=== PATIENT | female | born 1935 | race Caucasian/White ===

== ENCOUNTER → 2024-01-26 08:42 | Outpatient (REF) | payer OTHER, SELFPAY | LOC: HWRAD 08:42 | PROVIDERS: ATTENDING PHYSICIAN Family Medicine | DX: R05.3 Chronic cough (principal) | CPT/HCPCS: 71046 ==

== ENCOUNTER → 2024-08-23 09:21 | Outpatient (REF) | payer OTHER, SELFPAY | LOC: HWRAD 09:21 | PROVIDERS: ATTENDING PHYSICIAN Internal Medicine Critical Care Medicine; FAMILY PHYSICIAN Family Medicine | DX: R05.3 Chronic cough (principal) | CPT/HCPCS: 71250 ==

== ENCOUNTER → 2024-11-15 11:48 | Outpatient (REF) | payer OTHER, SELFPAY | LOC: PAVMRI 11:48 | PROVIDERS: ATTENDING PHYSICIAN Family Medicine | DX: K86.2 Cyst of pancreas (principal) | CPT/HCPCS: 74183; A9575 ==

== ENCOUNTER 2025-03-23 17:28 | Emergency (ER) | payer OTHER, SELFPAY ==
[2025-03-23 17:37] VITALS: BP 121/79
[2025-03-23 18:07] LABS: % Basophils 0.5 % (0-2); % Eosinophils 0.9 % (0-6); % Immature Granulocytes 0.5 % (0-0.5); % Lymphocytes 19.2 % (20.5-51.1); % Monocytes 11.4 % (1.7-9.3); % Neutrophils 67.5 % (42.2-75.2); Absolute Eosinophils 0.1 10^3/uL (0-0.7); Absolute Lymphocytes 1.1 10^3/uL (1.2-3.4); Absolute Monocytes 0.7 10^3/uL (0.1-0.6); Absolute Neutrophils 3.9 10^3/uL (1.4-6.5); Hematocrit 37.7 % (37.0-47.0); Hemoglobin 12.3 g/dL (12.0-16.0); Mean Corp Hgb Conc. 32.6 g/dL (33.0-37.0); Mean Corpuscular Hgb 29.9 pg (27.0-31.0); Mean Corpuscular Volume 91.5 fL (81.0-99.0); Mean Platelet Volume 10.8 fL (7.4-10.4); Nucleated Red Blood Cells % 0 %; Platelet Count 111 10^3/uL (130-400); Red Blood Cell Count 4.12 10^6/uL (4.20-5.40); Red Cell Dist. Width 13.3 % (11.5-14.5); White Blood Cell Count 5.8 10^3/uL (4.8-10.8)
[2025-03-23 18:18] LABS: ALT (SGPT) 12 U/L (0-35); AST (SGOT) 22 U/L (14-36); Albumin 4.2 g/dl (3.5-5.0); Alkaline Phosphatase 60 U/L (38-126); Blood Urea Nitrogen 27 mg/dl (7-17); Calcium 9.8 mg/dl (8.4-10.2); Carbon Dioxide 34 mmol/L (22-30); Chloride 106 mmol/L (98-107); Glucose 91 mg/dl (70-99); Magnesium 2.2 mg/dl (1.6-2.3); Potassium 4.6 mmol/L (3.5-5.1); Sodium 145 mmol/L (135-145); Total Bilirubin 0.5 mg/dl (0.2-1.3); Total Protein 6.9 g/dl (6.3-8.2); eGFR > 60.00
[2025-03-23 18:26] LABS: NT-proBNP 469 pg/ml
[2025-03-23 18:47] VITALS: BP 154/72
[2025-03-23 19:00] VITALS: BP 160/70
--- NOTE | 2025-03-23 19:05 | ED.GENMED ---
History of Present Illness
General
Chief Complaint: Cardiac Symptoms
Source: patient and family (Daughter, granddaughter)
Exam Limitations: none
Time Seen by Provider: 03/23/25 19:04
Nursing documentation reviewed up to this point in time: agreed with
History of Present Illness
History of Present Illness:
The patient is a pleasant 89-year-old female with a past medical history of COPD, hyperlipidemia, and thyroid disease who presents with intermittent palpitations associated with lightheadedness for several weeks. Patient reports her symptoms have
become more frequent and lasting. Patient reports that her lightheadedness and palpitations were particularly intense today. Patient's EKG shows new onset A-fib. On cardiac rehabilitation program director, patient is frequently experiencing atrial fibrillation
alternating with a normal sinus rhythm. Patient denies chest pain. She denies current smoking.
Past History
Past History
ED Past Medical History: COPD, Hypercholesterolemia and Hypothyroidism
ED Past Surgical History: Other
Social History
Tobacco: Former smoker
Alcohol: None
Drug: None
Personal: Other
Living: alone
Employment: Retired
Family History
Family History: Other
Review of Systems
Review of Systems
Allergies reviewed?: Yes
All Other Systems: ROS reviewed and negative except as documented in HPI and ROS
Constitutional: Reports no symptoms
EENT: Reports no symptoms
Respiratory: Reports no symptoms
Cardiac: Reports palpitations and other (Lightheadedness)
ABD/GI: Reports no symptoms
: Reports no symptoms
Musculoskeletal: Reports no symptoms
Skin: Reports no symptoms
Neurological: Reports no symptoms
Endocrine: Reports no symptoms
Hematologic/Lymphatic: Reports no symptoms
Psychiatric: Reports no symptoms
Phy Exam
Physical Exam
Physical Exam:
Physical Exam
General: no apparent distress, not acutely ill. Smiling, conversational
Neck: supple.
Heart: Irregular, tachycardic
Lungs: no acute respiratory distress. clear bilaterally
Abdomen: Soft
Neuro: alert and oriented. no focal neurological deficits
Skin: no rash
Psychiatric: well kept. interactive and cooperative
Extremities: 1+ pitting edema in bilateral lower extremities. No calf tenderness
Course
Orders/Labs/Results
Orders:
Orders
03/23/25 17:30
Electrocardiogram (*1) Urgent
Reason for Study: Atrial Fibrillation
EKG- Treatment ONCE
03/23/25 17:50
CBC/With Diff [Complete Blood Count/With Diff] Urgent
CMP [Comprehensive Metabolic Panel] Urgent
Magnesium Urgent
Pro-BNP [NT-proBNP] Urgent
TSH Urgent
Comment: ADDON
03/23/25 19:22
0.9% Sodium Chloride 500 ml [Nss] 500 ml IV BOLUS
03/23/25 19:27
Add On- LAB Urgent
Tests Added?: TSH
03/23/25 20:07
Diltiazem Extended Release [Cardizem Cd] 120 mg PO NOW STA
03/23/25 20:09
Apixaban [Eliquis] 5 mg PO NOW STA
Abnormal Lab Results
03/23/25
17:50
RBC 4.12 L 10^6/uL
(4.20-5.40)
MCHC 32.6 L g/dL
(33.0-37.0)
Plt Count 111 L 10^3/uL
(130-400)
MPV 10.8 H fL
(7.4-10.4)
Absolute Lymphs (auto) 1.1 L 10^3/uL
(1.2-3.4)
Absolute Monos (auto) 0.7 H 10^3/uL
(0.1-0.6)
Lymphocytes % 19.2 L %
(20.5-51.1)
Monocytes % 11.4 H %
(1.7-9.3)
Carbon Dioxide 34 H mmol/L
(22-30)
BUN 27 H mg/dl
(7-17)
03/23/25 17:50
03/23/25 17:50
Vital Signs
Initial and Last Documented VS:
Initial Vital Signs
Temp Pulse Resp BP Pulse Ox
98.2 F 85 20 121/79 95
03/23/25 17:37 03/23/25 17:37 03/23/25 17:37 03/23/25 17:37 03/23/25 17:37
Last Documented Vital Signs
Temp Pulse Resp BP Pulse Ox
98.2 F 78 20 156/90 94
03/23/25 17:37 03/23/25 21:00 03/23/25 21:00 03/23/25 21:00 03/23/25 21:00
MDM/Problems Addressed
Differential Diagnosis Includes:
New onset a flutter, new onset A-fib, acute dehydration
MDM/Problems Addressed:
Patient presents with acute on subacute palpitations and lightheadedness
Chronic conditions affecting care:
COPD
Acute Exacerbation and/or Progression of Chronic Illness:
Patient is breathing comfortably with no acute exacerbation of COPD.
*Pulse Oximetry
Patient hypoxic: no
Comment: Pulse ox 95% on room air
*EKG
Interpreted by ED Provider?: Yes
Interpretation: abnormal
Comparison EKG: changes noted (Now in A-fib)
Rate: tachycardiac
Rhythm: a-fib
[place]: left axis deviation
Interval: normal interval
QRS Pattern: right bundle branch block
Ischemia: non-specific ST changes
*Delivery Nurse Interpretation
Rate: tachycardiac
Interpretation: abnormal
Rhythm: a-fib
*Critical Care Note
Total Time (30-74mins, 75-104mins- exclusive of procedures): Not Applicable
Data Reviewed
Review of Other/Old Records Reveals: Testing (Holter monitor showed no sign of A-fib in 2022)
Source: patient and family
Patient Management
Social determinants of health affecting care: Living situation and Strong social support
Discussion with other providers: Other (Case discussed with cardiology, Dr. Audi coley who recommended 120 mg of diltiazem extended release and 5 mg of Eliquis twice a day)
Escalation/DeEscalation of care consider admission/obs:
Patient has had no chest pain or shortness of breath. There is no sign of CHF. Therefore, patient feels comfortable going home with quick cardiology follow-up
ED Attending Note
-
Portions of this chart may have been created with voice recognition software.� Occasional wrong word or��sound alike� substitutions may have occurred due to the inherent limitations of voice recognition software.
Discharge Plan
Departure
Patient Disposition: Home (Routine Discharge)
Date of Disposition: 03/23/25
Time of Disposition: 21:08
Patient with high blood pressure during this ER visit?: Yes
Condition: Good
Covid-19: Not Applicable
Discharge Problem:
New onset a-fib
Instructions: How to take anticoagulants safely, Medicines for atrial fibrillation, Atrial fibrillation and atrial flutter - ED discharge instructions, Chest Pain CBC Follow Up, BLOOD PRESSURE
Prescriptions:
New
diltiazem HCl [DILT-XR] 120 mg capsule,ext.rel 24h degradable
120 mg PO DAILY Qty: 30 0RF
Eliquis 5 mg tablet
5 mg PO BID Qty: 60 0RF
Referrals:
Hans Bautista MD [Active, Cardiology]
Referral Note: If you do not hear from the cardiology office by Wednesday at noon, please give them a call to see them as soon as possible
Soraida Bagley MD [Family Provider, Family Practice]
Interventions
Interventions:
*Risk Screen - Suicide Last Done: 03/23/25 17:37
*General Assessment Last Done: 03/23/25 17:37
*Neglect/Abuse Screening Last Done: 03/23/25 17:37
*ED- Fall Risk Assessment Last Done: 03/23/25 17:37
*ED COVID-19 Vaccine History Last Done: 03/23/25 17:37
ED- Pulmonary Assessment Last Done: 03/23/25 18:43
ED- Cardiac Assessment Last Done: 03/23/25 18:43
Discharge Date and Time
Print Language: KENYAN
[2025-03-23 19:24] VITALS: BMI 27.2
[2025-03-23] MEDS: NSS 500 IV (19:24)
[2025-03-23 19:30] VITALS: BP 150/85
[2025-03-23 20:00] VITALS: BP 154/75
[2025-03-23] MEDS: CARDIZEM CD 120 MG PO (20:16)
[2025-03-23] MEDS: ELIQUIS 5 MG PO (20:16)
[2025-03-23 20:50] LABS: TSH 2.56 uIU/ml (0.47-4.68)
[2025-03-23 21:00] VITALS: BP 156/90
== END 2025-03-23 21:23 | disposition home or self-care (01) ==
LOC: EMR 17:28
PROVIDERS: Emergency Medicine; EMERGENCY PHYSICIAN Emergency Medicine; FAMILY PHYSICIAN Family Medicine
DX: I48.91 Unspecified atrial fibrillation (principal); R03.0 Elevated blood-pressure reading, without diagnosis of hypertension; J44.9 Chronic obstructive pulmonary disease, unspecified; E78.00 Pure hypercholesterolemia, unspecified; E07.9 Disorder of thyroid, unspecified; Z87.891 Personal history of nicotine dependence
CPT/HCPCS: 99284; 96360; 96361; 80053; 83735; 83880; 84443; 85025; 93005

== ENCOUNTER 2025-03-25 19:30 | Day surgery (SDC) | payer OTHER, SELFPAY ==
[2025-03-25] VITALS (20 sets, daily range): BP systolic 136–174; BP diastolic 55–103; BMI 26.1
[2025-03-25] MEDS: CALCIUM GLUCONATE 1000 MG IV (17:32)
--- NOTE | 2025-03-25 17:53 | ED.GENMED ---
History of Present Illness
General
Chief Complaint: Heart Rate Problem
Time Seen by Provider: 03/25/25 17:26
History of Present Illness
History of Present Illness:
Patient is a 89-year-old woman with history of COPD, hypothyroidism, newly diagnosed A-fib on diltiazem and Eliquis presenting to the emergency department lightheadedness dizziness. Per chart review patient was diagnosed with A-fib 3 days ago. She
has been compliant with her diltiazem. Did not take any additional doses. States that since yesterday she has been having feelings of lightheadedness dizziness. Has not passed out. No chest pain or shortness of breath. No nausea vomiting
diarrhea. No leg swelling or hemoptysis. No tick bites that she is aware of. No recent travel.
Past History
Past History
ED Past Medical History: COPD, Hypercholesterolemia and Hypothyroidism
ED Past Surgical History: Other
Social History
Tobacco: Former smoker
Alcohol: None
Drug: None
Personal: Other
Living: alone
Employment: Retired
Family History
Family History: Other
Phy Exam
Physical Exam
Physical Exam:
GENERAL: in no acute distress
HEENT: normocephalic, extraocular movements intact, moist oral mucosa
NECK: normal inspection
RESPIRATORY: no respiratory distress, clear to auscultation bilaterally
CARDIOVASCULAR: Irregularly irregular rhythm in the 90s
ABDOMEN/: soft, non-distended, non-tender to palpation, no rebound or guarding
EXTREMITIES: non-tender, no edema/swelling
NEUROLOGIC: awake and alert, moves all extremities
SKIN: warm
Course
Orders/Labs/Results
Orders:
Orders
03/25/25 16:52
Electrocardiogram (*1) Urgent
Reason for Study: Atrial Fibrillation
EKG- Treatment ONCE
03/25/25 17:29
Calcium Gluconate 1,000 mg IV NOW STA
03/25/25 17:33
Complete Blood Count/With Diff Urgent
Comprehensive Metabolic Panel Urgent
Lyme Progressive Urgent
Magnesium Urgent
Thyroid profile [TSH Reflex To Free T4] Urgent
Abnormal Lab Results
03/25/25
17:33
RBC 4.18 L 10^6/uL
(4.20-5.40)
MCHC 32.6 L g/dL
(33.0-37.0)
Plt Count 102 L 10^3/uL
(130-400)
MPV 11.4 H fL
(7.4-10.4)
Absolute Monos (auto) 0.7 H 10^3/uL
(0.1-0.6)
Immature Gran % 0.7 H %
(0-0.5)
Monocytes % 12.9 H %
(1.7-9.3)
Chloride 108 H mmol/L
(98-107)
BUN 25 H mg/dl
(7-17)
Glucose 116 H mg/dl
(70-99)
03/25/25 17:33
03/25/25 17:33
Vital Signs
Initial and Last Documented VS:
Initial Vital Signs
Temp Pulse Resp BP Pulse Ox
98.0 F 100 18 161/81 95
03/25/25 16:53 03/25/25 16:53 03/25/25 16:53 03/25/25 16:53 03/25/25 16:53
Last Documented Vital Signs
Temp Pulse Resp BP Pulse Ox
98.0 F 78 21 149/87 100
03/25/25 16:53 03/25/25 18:15 03/25/25 18:15 03/25/25 18:00 03/25/25 18:15
MDM/Problems Addressed
Differential Diagnosis Includes:
Patient is a 89-year-old woman with history of atrial fibrillation on diltiazem, hypothyroidism presenting to the emergency department with lightheadedness dizziness since last night. On arrival patient's heart rate was in the 90s in atrial
fibrillation however would have a sinus pause where she would become symptomatic with a blank stare. Her blood pressure have remained stable. Pads were placed immediately. Exam is otherwise reassuring. Differential consist of metabolic
derangement versus thyroid abnormality versus calcium channel maria elena overdose though less likely. Will check blood work and try calcium gluconate. I did immediately discuss with on-call cardiology Dr. Rush who is in agreement with plan. Plan
for eval tomorrow unless if anything changes. She recommends holding off on calcium at this time.
*Critical Care Note
Total Time (30-74mins, 75-104mins- exclusive of procedures): Not Applicable
Update Note
Update Note:
Nursing notified as patient had about 8-second pause. BP remained stable. Cardiology immediately notified. They will come in for evaluation. Labs generally unremarkable.
Dr Rush evaluated patient. Given the extent of the episodes and symptomatic, patient will be taken up for temporary pacer. Cardiology will admit to their service.
ED Attending Note
-
Portions of this chart may have been created with voice recognition software.� Occasional wrong word or��sound alike� substitutions may have occurred due to the inherent limitations of voice recognition software.
Discharge Plan
Departure
Patient Disposition: Admit
Date of Disposition: 03/25/25
Time of Disposition: 18:39
Presentation/result/management discussed w/ accepting /DO: vianca
Discharge Problem:
Symptomatic bradycardia
Prescriptions:
No Action
diltiazem HCl [DILT-XR] 120 mg capsule,ext.rel 24h degradable
120 mg PO DAILY Qty: 30 0RF
Eliquis 5 mg tablet
5 mg PO BID Qty: 60 0RF
tiotropium bromide [Spiriva with HandiHaler] 18 mcg Capsule, W/Inhalation Device
1 cap INHALATION DAILY
Referrals:
UNKNOWN - PT DOES,NOT KNOW [Family Provider]
Interventions
Interventions:
*Risk Screen - Suicide Last Done: 03/25/25 16:54
*Neglect/Abuse Screening Last Done: 03/25/25 17:25
*ED- Fall Risk Assessment Last Done: 03/25/25 17:25
ED- Cardiac Assessment Last Done: 03/25/25 17:25
ED- Pulmonary Assessment Last Done: 03/25/25 17:25
Discharge Date and Time
Print Language: GREENLANDIC
[2025-03-25 17:54] LABS: % Basophils 0.4 % (0-2); % Eosinophils 1.3 % (0-6); % Immature Granulocytes 0.7 % (0-0.5); % Lymphocytes 21.5 % (20.5-51.1); % Monocytes 12.9 % (1.7-9.3); % Neutrophils 63.2 % (42.2-75.2); Absolute Eosinophils 0.1 10^3/uL (0-0.7); Absolute Lymphocytes 1.2 10^3/uL (1.2-3.4); Absolute Monocytes 0.7 10^3/uL (0.1-0.6); Absolute Neutrophils 3.4 10^3/uL (1.4-6.5); Hematocrit 38.6 % (37.0-47.0); Hemoglobin 12.6 g/dL (12.0-16.0); Mean Corp Hgb Conc. 32.6 g/dL (33.0-37.0); Mean Corpuscular Hgb 30.1 pg (27.0-31.0); Mean Corpuscular Volume 92.3 fL (81.0-99.0); Mean Platelet Volume 11.4 fL (7.4-10.4); Nucleated Red Blood Cells % 0 %; Platelet Count 102 10^3/uL (130-400); Red Blood Cell Count 4.18 10^6/uL (4.20-5.40); Red Cell Dist. Width 13.5 % (11.5-14.5); White Blood Cell Count 5.4 10^3/uL (4.8-10.8)
[2025-03-25 18:11] LABS: ALT (SGPT) 25 U/L (0-35); AST (SGOT) 27 U/L (14-36); Albumin 4.2 g/dl (3.5-5.0); Alkaline Phosphatase 55 U/L (38-126); Blood Urea Nitrogen 25 mg/dl (7-17); Calcium 9.9 mg/dl (8.4-10.2); Carbon Dioxide 29 mmol/L (22-30); Chloride 108 mmol/L (98-107); Estimated Creatinine Clearance 62 ml/min; Glucose 116 mg/dl (70-99); Potassium 3.7 mmol/L (3.5-5.1); Sodium 142 mmol/L (135-145); Total Bilirubin 0.5 mg/dl (0.2-1.3); Total Protein 6.6 g/dl (6.3-8.2); eGFR > 60.00
[2025-03-25 18:43] LABS: TSH Reflex To Free T4 2.75 uIU/ml (0.47-4.68)
--- NOTE | 2025-03-25 18:46 | HPS.HSE ---
Family Physician
-
Family Physician: NOT KNOW UNKNOWN - PT DOES
Chief Complaint
-
Dizziness, presyncope
History of Present Illness
89-year-old female with hypothyroidism and hyperlipidemia who presents with dizziness and presyncope. She has been having presyncopal episodes for the past few months. She was referred to Dr. Bautista whom she saw in the office earlier this month. He
ordered an echocardiogram, stress test, and 2-week monitor as part of workup. She has not had these done yet. She presented to ER on 03/23 with intermittent palpitations and lightheadedness and ECG revealed new onset atrial fibrillation. A-fib
was paroxysmal so she was started on diltiazem 120 mg daily and Eliquis 5 mg twice daily. She returned to the ER today because her presyncopal episodes and dizziness were worsening. Here she was found to have paroxysmal atrial fibrillation with
intermittent sinus bradycardia (HRs as low as 30s�40s) and symptomatic conversion pauses up to 4.5 seconds.
Medical History
Past Medical History
Past Medical History: Reports Arrhythmia (Paroxysmal atrial fibrillation), Hypercholesterolemia and Hypothyroidism
Past Surgical History: Reports Other (Not relevant)
Social History
Tobacco: Non-smoker
Alcohol: None
Family History
Family History: Not pertinent
Allergies / Home Medications
Allergies reflects when Allergies were last updated in [email or web address].
Home Medications with original date entered in [email or web address]
Allergy/Medication List:
Diltiazem 120 mg daily
Eliquis 5 mg twice daily
Simvastatin
Levothyroxine
Review of Systems
-
A 12 point ROS was completed and negative except as noted: Yes
Physical Exam
Vital Signs
Vital Signs
Temp Pulse Resp BP Pulse Ox
98.0 F 52 18 173/79 99
03/25/25 16:53 03/25/25 18:30 03/25/25 18:30 03/25/25 18:30 03/25/25 18:30
Physical Exam
General: Well Developed and Well Nourished
Respiratory: Clear and Non Labored Respirations
Cardiac: S1/S2 and Irregular Rhythm; No Murmur or Peripheral Edema
Neuro: AO x 3
Laboratory Results
-
03/25/25 17:33
03/25/25 17:33
Laboratory Results
Total Bilirubin 0.5 mg/dl (0.2-1.3) 03/25/25 17:33
AST 27 U/L (14-36) 03/25/25 17:33
ALT 25 U/L (0-35) 03/25/25 17:33
Alkaline Phosphatase 55 U/L (38-126) 03/25/25 17:33
Data Reviewed
-
Critical Care Time (in minutes): 41
Medical Tests (Nuc Med, Echo, EKG etc): Image Personally Visualized and interpreted, Discussed with Physician and Discussed with Patient
Lab Data: Labs Reviewed by me, Discussed with Physician and Discussed with Patient
Old Records: Reviewed
Impression/Plan
-
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
Symptomatic bradycardia
-Diagnosis is a threat to life without imminent pacemaker placement
-In the setting of paroxysmal atrial fibrillation with tachybrady syndrome and symptomatic conversion pauses (up to 4.5 sec while awake)
-Given that she is symptomatic at rest, we will place a transvenous pacing wire with plan for PPM tomorrow
-Please keep n.p.o. now until TVP and then again past midnight
-Hold any AV marisela blocking agents
Paroxysmal atrial fibrillation
-Hold rate/rhythm control agents. Plan for PPM as above.
-Continue Eliquis 5 mg twice daily
Hypothyroidism
-TSH normal on 03/23
-Continue home levothyroxine
Hyperlipidemia
-Continue simvastatin
CCT: 41 min
--- NOTE | 2025-03-25 19:53 | ITS.CL.PN ---
Director Public Service - Procedure Note
Procedure
Procedure Note:
Temporary Pacemaker Insertion
Date: 03/25/2025
Referring: Zaire Rush M.D.
Indication: Tachybradycardia syndrome, near syncope.
Access:
6 [place] right internal jugular vein using a micropuncture kit under ultrasound guidance via a modified Seldinger technique.
Pacemaker Information:
Position: Right ventricular apex.
Current (mA): 20
Rate (bpm): 60
Procedure:
The patient's right neck and inguinal areas were prepped and draped and standard sterile fashion. The right neck was anesthetized with 1% lidocaine. The right internal jugular vein was punctured with a micropuncture needle under ultrasound
guidance using a modified Seldinger technique. Fluoroscopy confirmed satisfactory sheath position. The site was serially dilated and an 6 [place] Arrow sheath was inserted then sutured in place. A temporary pacemaker wire was covered with a
sterile cover, then inserted through the 6 [place] sheath. The tip of the pacemaker was advanced into the apex of the right ventricle. The pacemaker was turned on at 120 bpm at 20 mA. The current was serially decreased showing good capture at 1
mA. The current was increased to 20 mA and the rate decreased to VVI 60 bpm. The sterile cover was secured and the sheath was covered with two opposing tegaderm dressings. A third tegaderm secured the body of the temporary pacemaker just below
the right clavicle. The patient was transferred to IVU in stable condition.
Radiation (mGy): 18.56
Dose Area Product (Gy*cm2): 2.5722
Fluoroscopy Time (minutes): 0.3
Conclusions:
1. Successful placement of a temporoary pacemaker via right internal jugular approach without acute complications.
Recommendations:
1. Minimal manipulation of the right IJ wire to avoid potential dislodgement.
2. Discussion with EP regarding medical management vs. permanent device.
Copy to: Zaire Rush M.D., Hans Bautista M.D., Ph.D., Soraida Bagley M.D.
--- NOTE | 2025-03-25 21:00 | PTCARENOTE ---
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 Pt with RIJ 6 fr venous sheath. Transvenous temporary pacemaker attached. Pacer settings: VVI, rate 60, mA 20. Current heart rhythm reveals some sinus beats with AR 0.22 sec, AF beats, then V pacing. BP
140-160 systolic. Audible heart tones. +2 palpable radial and DP pulses. Dr. Rogers at bedside to see pt. Pt awake, alert, oriented x 4. Speech clear. Equal strength x 4 extremities. Pt on room air. BBS present. Clear to B anterior lobes. Mildly
decreased B bases. Belly soft, nontender. Normoactive bs x 4. Pt refuses dinner for now. Will be NPO p MN. Explained to pt. Purewick placed onto pt. Pt voided large void x 1, suction not on to Purewick. CHG bath and linen change done. Purewick
suction on per protocol. Pt voiding clear, yellow urine. Granddaughter Zuleika at bedside. Plan of care discussed. Admission questions/Med Reconciliation done. Pt without c/o pain. Ongoing plan of care.
[2025-03-25] MEDS: ELIQUIS 5 MG PO (23:07)
[2025-03-26] VITALS (26 sets, daily range): BP systolic 112–182; BP diastolic 55–115; BMI 26.0
[2025-03-26 00:26] LABS: Glucose - Point of Care 110 mg/dl (70-99)
--- NOTE | 2025-03-26 00:45 | PTCARENOTE ---
Eliquis given per order of Dr. Rush ~ 2300 (see MAR). Pt repositioned in bed. C/O transient nausea. No vomiting. Blood glucose checked: 110. Leonardo, HEATER FURNACE notified. At bedside to see pt. Tigan 200 mg IM ordered. Pt refused Tigan for now, stating her
nausea was transient and she has no nausea at present. HEATER FURNACE notified. Pt NPO p MN for PPM placement in am.
--- NOTE | 2025-03-26 04:45 | PTCARENOTE ---
Pt sleeping intermittently. Remains V paced at times, also in AF and had sinus beats. Normotensive. Sats 94-96% on room air.
[2025-03-26 05:50] LABS: Hematocrit 37.9 % (37.0-47.0); Hemoglobin 12.6 g/dL (12.0-16.0); Mean Corp Hgb Conc. 33.2 g/dL (33.0-37.0); Mean Corpuscular Hgb 30.2 pg (27.0-31.0); Mean Corpuscular Volume 90.9 fL (81.0-99.0); Mean Platelet Volume 10.8 fL (7.4-10.4); Platelet Count 104 10^3/uL (130-400); Red Blood Cell Count 4.17 10^6/uL (4.20-5.40); Red Cell Dist. Width 13.3 % (11.5-14.5); White Blood Cell Count 6.3 10^3/uL (4.8-10.8)
[2025-03-26] MEDS: SYNTHROID 50 MCG PO (06:06)
[2025-03-26 06:14] LABS: Blood Urea Nitrogen 18 mg/dl (7-17); Calcium 9.2 mg/dl (8.4-10.2); Carbon Dioxide 28 mmol/L (22-30); Chloride 107 mmol/L (98-107); Estimated Creatinine Clearance 62 ml/min; Glucose 119 mg/dl (70-99); Potassium 3.6 mmol/L (3.5-5.1); Sodium 141 mmol/L (135-145); eGFR > 60.00
--- NOTE | 2025-03-26 06:15 | PTCARENOTE ---
Pt given CHG bath. Weighed in bed. Labs drawn and sent. New IV placed to LAC, #22. Remains neuro intact, intermittently V paced, runs of AF, and with sinus beats. Normotensive. Has been NPO since midnight. No c/o pain.
--- NOTE | 2025-03-26 07:47 | PTCARENOTE ---
Received pt from restaurant shift supervisor RN; V paced on monitor and VSS; RIJ Temporary pacing wire dressing C/D/I; PIV x2 patent; Lungs diminished; positive bowel sounds; Pure wick in place and pt voiding clear yellow urine; palpable pulses throughout; trace
ankle edema noted; see nursing documentation for further details.
--- NOTE | 2025-03-26 07:54 | PTCARENOTE ---
Pt sent to process laboratory specialist; report given to process laboratory specialist RN.
--- NOTE | 2025-03-26 08:22 | W.PN.CD ---
Today's Communication / Plan
-
- PPM today
- Start Toprol XL 50 mg BID post PPM
Impression / Plan
-
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
Symptomatic bradycardia
-Diagnosis is a threat to life without imminent pacemaker placement
-s/p temporary pacemaker wire over the weekend
-In the setting of paroxysmal atrial fibrillation with tachybrady syndrome and symptomatic conversion pauses (up to 4.5 sec while awake)
-Frequent pacing noted with frequent AF to sinus conversions.
-Please keep n.p.o. now until TVP and then again past midnight
-Hold any AV marisela blocking agents until the PPM
- Plan to start Metoprolol to suppress PAT after PPM.
Paroxysmal atrial fibrillation
-Hold rate/rhythm control agents. Plan for PPM as above.
-Continue Eliquis 5 mg twice daily
Hypothyroidism
-TSH normal on 03/23
-Continue home levothyroxine
Hyperlipidemia
-Continue simvastatin
CCT: 41 min
Physical Exam
Vital Signs/Labs
Vital Signs
Temp Pulse Resp BP Pulse Ox
98.1 F 78 20 158/76 96
03/26/25 07:45 03/26/25 07:30 03/26/25 07:45 03/26/25 07:30 03/26/25 07:45
03/25/25 03/26/25 03/27/25
06:59 06:59 06:59
Actual Weight 74.3 kg
03/26/25 05:31
03/26/25 05:31
Magnesium 2.0 mg/dl (1.6-2.3) 03/25/25 17:33
Physical Exam
Constitutional: No acute distress and Comfortable
EENT: Anicteric and Moist mucous membranes
Cardiovascular: Rhythm & rate is regular, Pedal edema is absent and JVD pressure is normal
Respiratory: Respiratory effort normal, Lungs clear to auscul. and Wheeze Absent
GI: Soft, Normal bowel sounds and Distention present
Neuro/Psych: Alert, Oriented, AO x 3 and Motor deficits absent
Other: Skin (R-IJ temp wire secured to skin. )
Data Reviewed
-
Date of Service: March 26, 2025
Medical Decision Making: Reviewed Test Results, Test Interpretation and Review of Case with other Provider
EKG: Tracing Personally Visualized and interpreted
Echo: Ordered by me
X-Ray/CT/US/MRI/NUC/PET: Image Personally Visualized and interpreted
Labs: Labs Reviewed by me
Old Records: Reviewed
Critical Care Time (in minutes): 35
--- NOTE | 2025-03-26 09:54 | ITS.CL.PACE ---
Director Corporate Compliance - Pacemaker Implant
Pacemaker Implant
Procedure Report:
Left Bundle Branch pacing dual chamber Permanent Pacemaker Placement:
Indications:
Ms. 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
Date of the Procedure: 03/26/25
Pre-Operative Diagnosis: tachy abdias syndrome.
Post-Operative Diagnosis: tachy abdias syndrome
Procedure Performed: LEFT BUNDLE BRANCH PACING WITH DUAL CHAMBER PERMANENT PACEMAKER IMPLANTATION.
Surgeon:
Eugene Mena MD
Anesthesia:
See anesthesia records
Detailed Description of the Procedure:
The patient was identified using hospital identification and informed consent obtained for the procedure. The risks were explained to the patient and the family including, but not limited to: Bleeding, infection, arrhythmia, stroke,
vascular/cardiac/lung puncture, surgery, pacemaker dependency/device malfunction. All questions were answered.
Anesthesia service provided sedation as reported separately. Antibiotics administered IV for risk of bacterial colonization. After obtaining informed and written consent, the patient was brought to the electrophysiology laboratory.
The initial rhythm was atrial flutter.
A timeout was performed immediately before the procedure. The left chest was prepped from the nipple to the angle of the jaw with chlorhexidine, and draped following sterile technique in usual routine.�
A surgical pause and time out was performed immediately prior to the procedure with review of her medical history, recent labs, allergies and medications with site of procedure identified and consent noted in the chart. Antibiotics pre operatively
given. All team members concurred.
The procedure site was meticulously prepared with surgical scrub and allowed to dry with no pooling. Sterile draping was applied to cover the procedure site. The image intensifier was draped with sterile bag and positioned over the patient.
The left infraclavicular region was prepped and draped in the usual sterile fashion. Local anesthesia was administered subcutaneously using 1% lidocaine / Bupivacaine. The left cephalic vein cutdown was done. The guide wires were advanced to the
inferior vena cava (IVC) under flouro guidance.
A subcutaneous pocket was created with blunt dissection and use of electrocautery. Hemostasis was excellent.
Attention then was turned to the left bundle branch pacing lead. The guide wire was advanced to the RA and was advanced to the RV. The preformed curved long hemostatic peel away HIS sheath was advanced into the RV cavity. A left bundle pacing wire
was advanced into the sheath to the tip with ventricular signals noted with unipolar manner. The HIS location was identified under guidance of the flouroscopy and the pacing wire signals. The sheath with the pacing lead was moved deeper into the RV
cavity on the septum at a more inferior and distal to the HIS signals.
Once adequate signals were noted on the electrograms of the pacing lead in the sheath with W pattern signals on the RV septum, the lead was advanced and clockwise turns were done under fluoroscopic guidance. The septum was engaged and the lead was
paced intermittently after every 2-3 turns with each advancement. The ventricular capture was monitored throughout and the captures gradually changed from RV pacing to non-selective pacing to LBB pacing with R wave on V1.
With RBBB pattern noted on the pacing lead, it was decided to accept the location as optimal location. The long guiding sheath was cut and removed from the RV without change in lead position, impedance, sensing, or capture. The lead was sutured to
the underlying pectoralis fascia with 2-0 Ethibond stitches.
The RA lead was anchored in the right atrial appendage with passive fixation using tines. The atrium was fast paced and flutter was attempted to paced out but was not successful. However, it did convert soon after. There was excellent sensing,
pacing, and impedance from the leads, with no diaphragmatic stimulation at 10 V output.�Bovie cautery, antibiotics, and fluoroscopy were used.
The leads were attached to the pulse generator in standard configuration with acceptable sensing and threshold parameters. The pocket was irrigated with antibiotic solution; the pocket was inspected with no active bleeding noted. The device and the
leads were placed in the pocket.
A Tyrx pouch was placed around the device and the leads.
Deep subcutaneous tissues were closed with 3 layers of 2-0V loc sutures; and the dermis was reopposed using a running 4-0 VLOC subcuticular suture. Sponge counts / sharp counts were appropriate.
Procedure End:
The procedure was tolerated well. Aquacel bandaged was applied. A pressure dressing was applied.
Estimated Blood loss:
5 cc
Specimens Removed:
No cultures and no specimens were obtained. No intraoperative pathology was identified.
Urine output:
None
Packs / Drains/ Tubes:
None
Instrument / Sponge Count Correct:
Yes
Flouro time:
3.9min / 5.81mGy
Complications of the Procedure:
None
Condition of Patient at Time of Transfer:
Hemodynamically stable with no neurological or vascular compromise.
Device information:�
Generator: [employer]; Model: W1DR01; Serial # [id number]�
����������� Atrial Lead: Medtronic; Model: 4574-53; Serial # [id number]�
Measured data in the right atrium was sensing of 2.8 mV, impedance of 580 ohms and threshold of 0.75 V at 0.4ms�
����������� LBB pacing lead: Medtronic; Model: 3830-69; Serial # [id number]
����������������������� Measured data on the RV lead was sensing of 8mV, impedance of 720 ohms and threshold of 0.5 V at 0.4ms
PROGRAMMING PARAMETERS:�
Abdias parameter settings were AAIR <=>DDDR 60-130 �
����������� Paced AV interval: 180ms
����������� Sensed AV interval: 150 ms.
����������� Rate Adaptive A-V Interval: off
����������� Mode switch ON
�
Summary:
Successful implantation of MRI compatible LBB pacing dual chamber pacemaker.
Results/Recommendations:
-Please follow up CXR�
1. Please provide patient with adequate pain control�
Instructions to be given to patient:�
- Please follow up with [facility] at [address] [place] [address] ([phone]) to get your wound checked in 2 weeks of your discharge. Then follow with
- Do not wet incision site until after it is evaluated at cardiology clinic. No baths or showers until then. Sponge baths / showers are OK but dab dry the dressing after it is wet.�
- Allow 'steri strips' to fall off on their own�
- Do not lift left elbow above shoulder, particularly with sudden jerking movements, for 1 month�
- Do not lift anything weighing more than 5 pounds with the left arm for 1 month�
- If you notice any fevers, shortness of breath, lightheadedness, chest pain, or worsening swelling in the wound site, please contact the arrhythmia clinic, contact your or scrub tech, or present to the hospital for evaluation.�
Eugene Mena MD
Electrophysiology
--- NOTE | 2025-03-26 10:30 | PTCARENOTE ---
Pt returned from [facility] laboratory director via bed; NSR with occasional A pacing; VSS; left arm in sling; EKG done; pt resting comfortably in bed.
[2025-03-26] MEDS: KCL 40 MEQ PO (11:08)
[2025-03-26] MEDS: LIPITOR 10 MG PO (11:08)
[2025-03-26] MEDS: TOPROL XL 50 MG PO ×2 (11:09→20:54)
--- NOTE | 2025-03-26 12:40 | PTCARENOTE ---
NSR/A-paced on monitor and VSS; assessment unchanged and pt resting comfortably in chair; family at bedside.
[2025-03-26 13:45] LABS: Lyme Antibody Screen, EIA Negative (Negative)
[2025-03-26] MEDS: ANCEF 5 IV (17:04)
--- NOTE | 2025-03-26 18:07 | CM ---
spoke to pt in room, she is pre vindep, lives alone in a 2 story home with a first floor set up. she denies any dc planning needs. sh has a cane and a walker at home to use if needed. plan is for dc to home when medically stable.
[2025-03-26] MEDS: ELIQUIS 5 MG PO (20:54)
--- NOTE | 2025-03-26 21:02 | PTCARENOTE ---
Assumed care of pt from neisha RN. Walking rounds completed. Pt is AAOx3. OOB to the chair at this time. Pt w/ PPM. DDDR 60-130. Pt between A-paced/sinus/A-V paced on the tele monitor. HR 60s. BP stable. Palpable pulses throughout. Trace B/L LE
edema. Pt is 94% on RA. B/L lung sounds audible. Deep breathing encouraged. Abdomen soft/nontender. +BSx4. Pt voiding w/o issue. Left upper chest PPM site intact. Left arm immobilizer on. PIV x2 intact. Pt denies pain at this time. See worklist for
full nursing assessment and interventions. Call perkins within reach.
[2025-03-27] VITALS: BP 136/69
--- NOTE | 2025-03-27 00:06 | PTCARENOTE ---
No acute changes in assessment. Pt VSS. Left upper chest PPM site intact. Left arm immobilizer in place. No c/o pain at this time. Call perkins within reach.
[2025-03-27] MEDS: ANCEF 5 IV (00:09)
[2025-03-27 03:18] VITALS: BMI 25.8
[2025-03-27 03:43] LABS: Hematocrit 36.7 % (37.0-47.0); Mean Corp Hgb Conc. 32.7 g/dL (33.0-37.0); Mean Corpuscular Hgb 30.2 pg (27.0-31.0); Mean Corpuscular Volume 92.4 fL (81.0-99.0); Platelet Count 98 10^3/uL (130-400); Red Blood Cell Count 3.97 10^6/uL (4.20-5.40); Red Cell Dist. Width 13.5 % (11.5-14.5); White Blood Cell Count 5.9 10^3/uL (4.8-10.8)
[2025-03-27 04:00] VITALS: BP 106/60
[2025-03-27 04:00] LABS: Blood Urea Nitrogen 20 mg/dl (7-17); Calcium 9.3 mg/dl (8.4-10.2); Carbon Dioxide 28 mmol/L (22-30); Chloride 106 mmol/L (98-107); Estimated Creatinine Clearance 53 ml/min; Glucose 114 mg/dl (70-99); Potassium 4.6 mmol/L (3.5-5.1); Sodium 141 mmol/L (135-145); eGFR > 60.00
--- NOTE | 2025-03-27 04:00 | PTCARENOTE ---
Pt reassessed. Pt is A-paced on the tele monitor. BP stable. Pt is 94% on RA. Up to the bathroom w/ assist x1 to void. Left upper chest PPM site intact. Left arm immobilizer remains in place. Labs drawn and sent. No c/o pain at this time. Call perkins
within reach.
[2025-03-27] MEDS: SYNTHROID 50 MCG PO (06:11)
[2025-03-27 07:33] VITALS: BP 139/70
[2025-03-27] MEDS: TOPROL XL 50 MG PO (07:49)
[2025-03-27] MEDS: LIPITOR 10 MG PO (07:49)
[2025-03-27] MEDS: ELIQUIS 5 MG PO (07:50)
--- NOTE | 2025-03-27 08:03 | PTCARENOTE ---
Received pt from mold shifter RN; pt AAOX3 and resting comfortably in chair; A paced on monitor and VSS: Lungs diminished; positive bowel sounds; pt voiding yellow urine; palpable pulses throughout; no edema noted; surgical site C/D/I; see nursing
documentation for further details.
--- NOTE | 2025-03-27 09:37 | W.PN.CD ---
Today's Communication / Plan
-
- Stable for discharge
Impression / Plan
-
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
Symptomatic bradycardia
-s/p dual chamber PPM - Medtronic 03/26/25
- Now 100% A paced, V sensed
-s/p temporary pacemaker wire over the weekend now removed on 03/26
- PPM site is normal.
- Neck dressing removed. No bleeding.
- Stable fro discharge.
Paroxysmal atrial fibrillation
- Metoprolol to suppress PAT/PAF after PPM.
-Continue Eliquis 5 mg twice daily
Hypothyroidism
-TSH normal on 03/23
-Continue home levothyroxine
Hyperlipidemia
-Continue simvastatin
Physical Exam
Vital Signs/Labs
Vital Signs
Temp Pulse Resp BP Pulse Ox
98.7 F 62 18 106/60 94
03/27/25 07:35 03/27/25 06:00 03/27/25 07:35 03/27/25 04:00 03/27/25 08:19
03/26/25 03/27/25 03/28/25
06:59 06:59 06:59
Actual Weight 74.3 kg 73.7 kg
03/27/25 03:18
03/27/25 03:18
Magnesium 2.0 mg/dl (1.6-2.3) 03/25/25 17:33
Physical Exam
Constitutional: No acute distress and Comfortable
EENT: Anicteric and Moist mucous membranes
Cardiovascular: Rhythm & rate is regular, Pedal edema is absent and JVD pressure is normal
Respiratory: Respiratory effort normal and Lungs clear to auscul.
GI: Soft, Non tender and Normal bowel sounds
Neuro/Psych: Alert, Oriented and AO x 3
Other: Cardiac Device Site
Data Reviewed
-
Date of Service: March 27, 2025
Medical Decision Making: Reviewed Test Results, Test Interpretation and Review of Case with other Provider
EKG: Tracing Personally Visualized and interpreted
Echo: Report Reviewed by me
X-Ray/CT/US/MRI/NUC/PET: Image Personally Visualized and interpreted
Medical Tests (PFT, Pathology etc): Discussed with Physician, Discussed with Nurse, Discussed with Patient and Discussed with Family
Labs: Labs Reviewed by me
Old Records: Reviewed
--- NOTE | 2025-03-27 10:27 | W.DS.TRANS ---
DC Summary - [facility] Director
-
Discharge Instructions:
Sleep Apnea Risk Intermediate
Discharge Diagnosis/Procedures AFib with pauses/syncope, s/p Pacemaker implant
Diet Low Cholesterol
Driving Restrictions No driving for 1 week
Bathing Restrictions OK to Shower
Instructions:
Stand-Alone Forms: DC Inst - Implanted Device
Changes to Home Medications: Yes
Discharge Medications:
DC Medications w/original date entered in [facility]
apixaban 5 mg tablet (Eliquis) 5 mg PO BID #60 tabs 03/23/25
tiotropium bromide 18 mcg capsule with inhalation device (Spiriva with HandiHaler) 1 cap inhalation DAILY 03/25/25
cholecalciferol (vitamin D3) 50 mcg (2,000 unit) capsule (Vitamin D3) 50 mcg PO DAILY 03/26/25
levothyroxine 50 mcg tablet (Synthroid) 50 mcg PO DAILY 03/26/25
vitamin E 400 unit tablet 400 unit PO DAILY 03/26/25
metoprolol succinate 50 mg tablet,extended release 24 hr 50 mg PO BID #60 tabs 03/27/25
simvastatin 20 mg tablet 20 mg PO HS 03/27/25
Home Medication Changes
stop diltiazem, new to metoprolol 50mg bid
Pending Results: No
[2025-03-27 11:02] VITALS: BP 137/71
--- NOTE | 2025-03-27 11:19 | CM ---
Patient for DC to home today. There are no identified DC needs.
Plan is for home, no needs.
--- NOTE | 2025-03-27 11:32 | PTCARENOTE ---
PIV x2 and electro tech removed; pt dressed self with assistance; discharge paperwork gone over with pt and daughter; all questions answered; transport called for discharge home with daughter.
== END 2025-03-27 11:49 | disposition home or self-care (01) ==
LOC: SDS 19:30
PROVIDERS: ATTENDING PHYSICIAN Student in an Organized Health Care Education/Training Program; EMERGENCY PHYSICIAN Student in an Organized Health Care Education/Training Program
DX: I49.5 Sick sinus syndrome (principal); I49.3 Ventricular premature depolarization; I45.10 Unspecified right bundle-branch block; I47.10 Supraventricular tachycardia, unspecified; E78.00 Pure hypercholesterolemia, unspecified; E03.9 Hypothyroidism, unspecified; I48.0 Paroxysmal atrial fibrillation; J44.9 Chronic obstructive pulmonary disease, unspecified; Z79.01 Long term (current) use of anticoagulants; Z79.899 Other long term (current) drug therapy; Z87.891 Personal history of nicotine dependence
CPT/HCPCS: 33208; 33210; 71045; 80048; 80053; 82962; 83735; 84443; 85025; 85027; 86618; 93005; 96374; 99285; C1769; C1785; C1887; C1892; C1898; G0378

== ENCOUNTER → 2025-04-11 14:58 | Outpatient (REF) | payer OTHER, SELFPAY | LOC: RCS 14:58 | PROVIDERS: ATTENDING PHYSICIAN Internal Medicine; FAMILY PHYSICIAN Family Medicine | DX: R55 Syncope and collapse (principal); I25.10 Atherosclerotic heart disease of native coronary artery without angina pectoris; I45.10 Unspecified right bundle-branch block; I47.19 Other supraventricular tachycardia; I49.1 Atrial premature depolarization | CPT/HCPCS: 93306 ==

== ENCOUNTER → 2025-05-04 10:27 | Outpatient (REF) | payer OTHER, SELFPAY | LOC: RCS 10:27 | PROVIDERS: ATTENDING PHYSICIAN Internal Medicine; FAMILY PHYSICIAN Family Medicine | DX: I25.10 Atherosclerotic heart disease of native coronary artery without angina pectoris (principal); R55 Syncope and collapse; I45.10 Unspecified right bundle-branch block; I47.19 Other supraventricular tachycardia | CPT/HCPCS: 78452; 93017; A9500; J2785 ==

== ENCOUNTER → 2025-09-12 10:09 | Outpatient (REF) | payer OTHER, SELFPAY | LOC: RAD 10:09 | PROVIDERS: ATTENDING PHYSICIAN Family Medicine | DX: Z78.0 Asymptomatic menopausal state (principal) | CPT/HCPCS: 77080 ==